=== PATIENT | male | born 1980 | race Caucasian/White ===

== ENCOUNTER 2017-07-01 12:39 | Emergency (ER) | payer OTHER ==
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
[2017-07-01] MEDS ORDERED: fentaNYL 100 MCG/2 ML INJ ONE (13:06)
[2017-07-01] MEDS ORDERED: fentaNYL 100 MCG/2 ML INJ IVP ONE ×2 (13:07→14:28)
[2017-07-01] MEDS ORDERED: ONDANSETRON 4 MG/2 ML VIAL IVP ONE (13:07)
[2017-07-01] MEDS ORDERED: NS 1,000 ML IV ONE (13:07)
[2017-07-01 14:11] LABS: PLATELET COUNT 185 10^3/uL (150-400)
[2017-07-01] MEDS ORDERED: LET GEL TOPICAL 1 EA SYR TP ONE ×2 (15:17→15:22)
[2017-07-01 16:17] VITALS: BP 112/65
== END 2017-07-01 16:16 | disposition home or self-care (01) ==
LOC: EDUNIT# → EDBD
DX: S90.02XA Contusion of left ankle, initial encounter (principal); V43.52XA Car driver injured in collision with other type car in traffic accident, initial encounter; Y92.410 Unspecified street and highway as the place of occurrence of the external cause; Y99.8 Other external cause status; Y93.55 Activity, bike riding
CPT/HCPCS: 96374; J3010